=== PATIENT | male | born 1950 | race Caucasian/White ===

== ENCOUNTER 2020-05-05 14:05 | Outpatient (CLI) | payer OTHER | END 2020-05-05 14:16 | disposition home or self-care (01) | LOC: RAD 14:05 | PROVIDERS: ATTEND Orthopaedic Surgery | DX: M25.521 Pain in right elbow (principal); M79.641 Pain in right hand ==

== ENCOUNTER 2020-06-18 13:23 | Outpatient (CLI) | payer OTHER | END 2020-06-18 13:40 | disposition home or self-care (01) | LOC: NUCLEAR 13:23 | PROVIDERS: ATTEND Orthopaedic Surgery | DX: M81.0 Age-related osteoporosis without current pathological fracture (principal) ==

== ENCOUNTER 2020-08-05 11:04 | Outpatient (CLI) | payer OTHER | END 2020-08-05 11:11 | disposition home or self-care (01) | LOC: LAB 11:04 | PROVIDERS: ATTEND Orthopaedic Surgery | DX: E56.1 Deficiency of vitamin K (principal); E55.9 Vitamin D deficiency, unspecified; M85.88 Other specified disorders of bone density and structure, other site ==

== ENCOUNTER 2021-01-27 09:16 | Outpatient (CLI) | payer OTHER | END 2021-01-27 09:29 | disposition home or self-care (01) | LOC: RAD 09:16 | PROVIDERS: ATTEND Orthopaedic Surgery | DX: M25.521 Pain in right elbow (principal) ==

== ENCOUNTER 2021-05-22 08:00 | Outpatient (CLI) | payer OTHER | END 2021-05-22 08:30 | disposition home or self-care (01) | LOC: PPH VACUNA 08:00 | PROVIDERS: ATTEND Emergency Medicine Pediatric Emergency Medicine | DX: Z23 Encounter for immunization (principal) ==

== ENCOUNTER 2021-12-18 08:00 | Outpatient (CLI) | payer OTHER | END 2021-12-18 08:30 | disposition home or self-care (01) | LOC: PPH VACUNA 08:00 | PROVIDERS: ATTEND Emergency Medicine Pediatric Emergency Medicine | DX: Z23 Encounter for immunization (principal) ==